=== PATIENT | male | born 1940 | race Hispanic/Latino ===

== ENCOUNTER → 2020-12-17 | Outpatient (CLI) | payer OTHER, MEDICARE ==
[2020-12-17 15:21] LABS: EOSINOPHILS % (AUTO) 10.2 % (0.0-8.0); HEMATOCRIT 35.5 % (42-54); LYMPHOCYTES % (AUTO) 29.4 % (21.0-51.0); MEAN CORPUSCULAR HEMOGLOBIN 30.2 pg (27.0-33.0); MEAN CORPUSCULAR HGB CONC 33.8 g/dL (32.0-36.0); MEAN CORPUSCULAR VOLUME 89.2 fL (79-99); MONOCYTES % (AUTO) 8.8 % (3.0-13.0); NEUTROPHILS % (AUTO) 50.4 % (40.0-77.0); PLATELET COUNT (AUTO) 188 K/uL (130-400); RED BLOOD CELL COUNT(AUTO) 3.98 MIL/uL (4.50-6.20); RED CELL DISTRIBUTION WIDTH 14.5 % (11.0-15.5); WHITE BLOOD COUNT (AUTO) 6.3 K/uL (4.8-10.8)
[2020-12-17 15:29] LABS: POTASSIUM 3.7 mmol/L (3.5-5.1)
== END | disposition home or self-care (01) ==
LOC: LAB 14:54
PROVIDERS: ATTEND Urology
DX: D30.00 Benign neoplasm of unspecified kidney (principal)
CPT/HCPCS: 36415; 80048; 85025

== ENCOUNTER → 2021-01-13 | Outpatient (CLI) | payer OTHER, MEDICARE ==
[2021-01-13 13:10] LABS: EOSINOPHILS % (AUTO) 8.3 % (0.0-8.0); LYMPHOCYTES % (AUTO) 26.9 % (21.0-51.0); MEAN CORPUSCULAR HEMOGLOBIN 30.6 pg (27.0-33.0); MEAN CORPUSCULAR HGB CONC 34.6 g/dL (32.0-36.0); MEAN CORPUSCULAR VOLUME 88.4 fL (79-99); MONOCYTES % (AUTO) 6.9 % (3.0-13.0); NEUTROPHILS % (AUTO) 56.6 % (40.0-77.0); PLATELET COUNT (AUTO) 232 K/uL (130-400); RED BLOOD CELL COUNT(AUTO) 3.96 MIL/uL (4.50-6.20); WHITE BLOOD COUNT (AUTO) 7.2 K/uL (4.8-10.8)
[2021-01-13 13:20] LABS: POTASSIUM 3.6 mmol/L (3.5-5.1)
== END | disposition home or self-care (01) ==
LOC: LAB 12:16
PROVIDERS: ATTEND Urology
DX: D30.00 Benign neoplasm of unspecified kidney (principal)
CPT/HCPCS: 36415; 80048; 85025

== ENCOUNTER 2021-12-09 12:14 | Observation (INO) | payer OTHER, MEDICARE ==
[~2021-12-09] VITALS: Ht 165.1 cm; Wt 77.8 kg
[2021-12-09 12:59] LABS: BASOPHILS % (AUTO) 0.8 % (0.0-5.0); EOSINOPHILS % (AUTO) 7.2 % (0.0-8.0); HEMATOCRIT 34.5 % (42-54); LYMPHOCYTES % (AUTO) 31.1 % (21.0-51.0); MEAN CORPUSCULAR HEMOGLOBIN 27.9 pg (27.0-33.0); MEAN CORPUSCULAR VOLUME 84.6 fL (79-99); MONOCYTES % (AUTO) 8.3 % (3.0-13.0); NEUTROPHILS % (AUTO) 52.5 % (40.0-77.0); PLATELET COUNT (AUTO) 234 K/uL (130-400); RED BLOOD CELL COUNT(AUTO) 4.08 MIL/uL (4.50-6.20); RED CELL DISTRIBUTION WIDTH 15.2 % (11.0-15.5); WHITE BLOOD COUNT (AUTO) 7.1 K/uL (4.8-10.8)
[2021-12-09 13:07] LABS: POTASSIUM 3.7 mmol/L (3.5-5.1)
[2021-12-09 13:21] LABS: ALBUMIN 3.5 g/dL (3.5-5.0); BILIRUBIN,TOTAL 0.3 mg/dL (0.2-1.0); TOTAL PROTEIN, SERUM 8.2 g/dL (6.0-8.3)
[2021-12-09 13:22] LABS: APPEARANCE,URINE Clear (CLEAR); BILIRUBIN,URINE Negative (NEGATIVE); COLOR,URINE Yellow (YELLOW); GLUCOSE, URINE (UA) Negative (NEGATIVE); KETONES,URINE Negative (NEGATIVE); LEUKOCYTE ESTERASE ,URINE Negative (NEGATIVE); NITRATE,URINE Negative (NEGATIVE); OCCULT BLOOD,URINE Moderate (NEGATIVE); PROTEIN,URINE Trace mg/dL (NEGATIVE)
[2021-12-09] MEDS ORDERED: ASPIRIN 325MG TAB ONE (13:23)
[2021-12-09] MEDS ORDERED: ASPIRIN 325MG TAB PO ONE (13:30)
[2021-12-09] MEDS ORDERED: LACTATED RINGERS 1000ML 1,000 ML IV SCH (13:30)
[2021-12-09 13:38] LABS: B-TYPE NATRIURETIC PEPTIDE 22 pg/mL (0-100)
[2021-12-09 13:47] LABS: INR 1.07 (0.85-1.15); PROTHROMBIN TIME 11.6 SEC (9.6-11.6)
[2021-12-09 13:48] LABS: PARTIAL THROMBOPLASTIN TIME 26.2 SEC (26.3-35.5)
[2021-12-09 13:58] LABS: BACTERIA,URINE Rare /HPF (None Seen); RBC,URINE 0-1 /HPF (0-1); SQUAMOUS EPITHELIAL CELL,UR Rare /HPF (0-2); WBC,URINE 0-1 /HPF (0-1)
[2021-12-09] MEDS ORDERED: ROSU10TA28 PO (14:35)
[2021-12-09] MEDS ORDERED: LISI1TAB53 PO (14:35)
[2021-12-09] MEDS ORDERED: SERT-440 PO (14:36)
[2021-12-09] MEDS ORDERED: GABA-533 PO (14:37)
[2021-12-09] MEDS ORDERED: AMIT25TA9 PO (14:38)
[2021-12-09] MEDS ORDERED: LACTULOSE 20 GM/30 ML UDCUP PO PRN (15:00)
[2021-12-09] MEDS ORDERED: HYDRALAZINE 20MG/ML VIAL IV PRN (15:00)
[2021-12-09] MEDS ORDERED: ONDANSETRON 4MG INJ IVP PRN (15:00)
[2021-12-09] MEDS ORDERED: ALBUTEROL 0.083% 2.5 MG/3 ML INH IH PRN (15:00)
[2021-12-09] MEDS ORDERED: LABETALOL 20MG SYG IV PRN (15:00)
[2021-12-09] MEDS ORDERED: ACETAMINOPHEN 325 MG TAB PO PRN (15:00)
[2021-12-09] MEDS: 0.9%NACL 1000ML 1,000 ML IV SCH (15:24)
[2021-12-09] MEDS: INSULIN HUMULIN R 100 UNIT/ML 3ML SQ SCH ×2 (16:30→20:21)
[2021-12-09 18:45] VITALS: BP 151/69
[2021-12-09 19:42] VITALS: BP 137/64
[2021-12-09 19:46] VITALS: BP_SYST 132; BP_SYST 137; BP_DIAS 64; BP_DIAS 89
[2021-12-09 19:48] VITALS: BP 131/59
[2021-12-09] MEDS ORDERED: SIMVASTATIN 20 MG TABLET PO SCH (21:00)
[2021-12-09] MEDS: METOPROLOL TARTRATE 25 MG TAB PO SCH (21:26)
[2021-12-10] VITALS: BP 119/65
[2021-12-10 02:48] LABS: EOSINOPHILS % (AUTO) 9.3 % (0.0-8.0); HEMATOCRIT 30.9 % (42-54); MEAN CORPUSCULAR HEMOGLOBIN 28.5 pg (27.0-33.0); MEAN CORPUSCULAR HGB CONC 33.7 g/dL (32.0-36.0); MEAN CORPUSCULAR VOLUME 84.7 fL (79-99); MONOCYTES % (AUTO) 8.8 % (3.0-13.0); NEUTROPHILS % (AUTO) 52.7 % (40.0-77.0); PLATELET COUNT (AUTO) 194 K/uL (130-400); RED BLOOD CELL COUNT(AUTO) 3.65 MIL/uL (4.50-6.20); RED CELL DISTRIBUTION WIDTH 15.2 % (11.0-15.5)
[2021-12-10 03:26] LABS: MAGNESIUM 1.6 mg/dL (1.80-2.40); PHOSPHORUS 3.6 mg/dL (2.5-4.9); POTASSIUM 3.6 mmol/L (3.5-5.1); THYROID STIMULATING HORMONE 3.77 uIU/mL (0.36-3.74)
[2021-12-10 04:00] VITALS: BP 122/61
[2021-12-10] MEDS: 0.9%NACL 1000ML 1,000 ML IV SCH (05:03)
[2021-12-10] MEDS: INSULIN HUMULIN R 100 UNIT/ML 3ML SQ SCH ×3 (05:07→16:30)
[2021-12-10 07:51] VITALS: BP 135/81
[2021-12-10] MEDS: METOPROLOL TARTRATE 25 MG TAB PO SCH (08:16)
[2021-12-10] MEDS ORDERED: ASPIRIN 81MG CHEW TAB PO SCH (09:00)
[2021-12-10] MEDS ORDERED: ENOXAPARIN SODIUM 40 MG/0.4 ML SYRINGE SQ SCH (09:00)
[2021-12-10] MEDS ORDERED: PANTOPRAZOLE 40 MG TAB DR PO SCH (09:00)
[2021-12-10] MEDS ORDERED: MAGNESIUM 2GM PREMIX 50ML 50 ML IV PRN (10:00)
[2021-12-10] MEDS ORDERED: POTASSIUM CHLORIDE 20MEQ/100ML 100 ML IV PRN (10:00)
[2021-12-10] MEDS ORDERED: POTASSIUM CHLORIDE 10% ELIXIR 20 MEQ/15 ML UDCUP PO PRN (10:00)
[2021-12-10] MEDS: KCL 20 MEQ ERTAB PO PRN ×2 (10:12→11:24)
[2021-12-10 11:24] VITALS: BP 132/75
[2021-12-10 11:25] VITALS: BP_SYST 122; BP_SYST 126; BP_DIAS 68; BP_DIAS 77
[2021-12-10] MEDS ORDERED: MAGNESIUM OXIDE 400 MG TABLET PO SCH (11:30)
[2021-12-10 16:00] VITALS: BP 145/76
[2021-12-10] MEDS ORDERED: ASPI-1005 PO (16:40)
[2021-12-10] MEDS ORDERED: CALC-1290 PO (16:40)
[2021-12-10] MEDS ORDERED: METO25 PO (16:40)
[2021-12-10] MEDS ORDERED: SIMV-43 PO (16:40)
== END 2021-12-10 18:50 | disposition home or self-care (01) ==
LOC: EDH 12:14 → EDHIP 14:46 → 4CH 17:26
PROVIDERS: ADMIT Internal Medicine Pulmonary Disease; ATTEND Internal Medicine Pulmonary Disease
DX: R07.89 Other chest pain (principal); M62.82 Rhabdomyolysis; I25.10 Atherosclerotic heart disease of native coronary artery without angina pectoris; I10 Essential (primary) hypertension; I45.10 Unspecified right bundle-branch block; E78.5 Hyperlipidemia, unspecified; D64.9 Anemia, unspecified; E78.00 Pure hypercholesterolemia, unspecified; E83.42 Hypomagnesemia; R77.8 Other specified abnormalities of plasma proteins; Z79.82 Long term (current) use of aspirin; Z79.899 Other long term (current) drug therapy
CPT/HCPCS: 36415 ×2; 71045; 80048; 80053; 81001; 82270; 82550 ×5; 82948 ×5; 83735; 83874 ×3; 83880; 84100; 84443; 84484 ×4; 85025 ×2; 85610; 85730; 93005; 93306; 96361 ×2; 96365; 96366; 96372; 99285; G0378 ×27; J1650; J3475; J7030

== ENCOUNTER → 2022-02-15 | Outpatient (CLI) | payer OTHER, MEDICARE ==
[~2022-02-15] MED LIST: AMIT25TA9 PO; GABA-533 PO; LISI1TAB53 PO; SERT-440 PO
[2022-02-15 15:12] LABS: ALBUMIN 3.6 g/dL (3.5-5.0); BILIRUBIN,TOTAL 0.2 mg/dL (0.2-1.0); CREATININE 1.1 mg/dL (0.5-1.5); POTASSIUM 3.3 mmol/L (3.5-5.1); TOTAL PROTEIN, SERUM 8.3 g/dL (6.0-8.3)
== END | disposition home or self-care (01) ==
LOC: LAB 14:11
PROVIDERS: ATTEND Student in an Organized Health Care Education/Training Program
DX: G50.1 Atypical facial pain (principal)
CPT/HCPCS: 36415; 80053

== ENCOUNTER → 2022-02-17 | Outpatient (CLI) | payer OTHER, MEDICARE ==
[~2022-02-17] MED LIST changes: +IOHEXOL 350 MG/ML 100ML INFUS..BTL IV ONE
== END | disposition home or self-care (01) ==
LOC: RAH 07:19
PROVIDERS: ATTEND Student in an Organized Health Care Education/Training Program
DX: R07.89 Other chest pain (principal); G50.1 Atypical facial pain
CPT/HCPCS: 75574; Q9967